=== PATIENT | female | born 1980 | race Hispanic/Latino ===

== ENCOUNTER 2022-01-25 06:36 | Day surgery (SDC) | payer BC ==
[2022-01-22 10:04] VITALS: BP 195/85
[2022-01-22 16:25] LABS: BASOPHILS % (AUTO) 0.3 % (0.0-5.0); EOSINOPHILS % (AUTO) 1.9 % (0.0-8.0); HEMATOCRIT 39.5 % (36-48); LYMPHOCYTES % (AUTO) 33.4 % (21.0-51.0); MEAN CORPUSCULAR HGB CONC 32.9 g/dL (32.0-36.0); MEAN CORPUSCULAR VOLUME 82.1 fL (79-99); MONOCYTES % (AUTO) 6.5 % (3.0-13.0); NEUTROPHILS % (AUTO) 57.6 % (40.0-77.0); PLATELET COUNT (AUTO) 447 K/uL (130-400); RED BLOOD CELL COUNT(AUTO) 4.81 MIL/uL (4.00-5.50); RED CELL DISTRIBUTION WIDTH 13.6 % (11.0-15.5); WHITE BLOOD COUNT (AUTO) 10.6 K/uL (4.8-10.8)
[2022-01-25] VITALS (18 sets, daily range): BP systolic 144–173; BP diastolic 79–97
[~2022-01-25] VITALS: Ht 165.1 cm; Wt 150.1 kg
[~2022-01-25 06:36] MED LIST: CEFAZOLIN SODIUM 1 GM VIAL IVP SCH; LACTATED RINGERS 1000ML 1,000 ML IV SCH; LISI20TA24 PO; METF-446 PO; SEMA1PEN3 SQ
[2022-01-25] MEDS ORDERED: 0.9%NACL 1000ML 1,000 ML IV ONE (06:44)
[2022-01-25] MEDS ORDERED: CEFAZOLIN SODIUM 1 GM VIAL ONE (06:44)
[2022-01-25] MEDS ORDERED: FAMOTIDINE 20MG VIAL IV ONE (07:29)
[2022-01-25] MEDS ORDERED: SUCCINYLCHOLINE CHLORIDE 20 MG/ML 10 ML VIAL ONE ×2 (07:31→07:33)
[2022-01-25] MEDS ORDERED: GLYCOPYRROLATE 1 MG/5 ML SYRINGE ONE (07:32)
[2022-01-25] MEDS ORDERED: FENTANYL CITRATE PF 50 MCG/1 ML 2ML VIAL ONE (07:32)
[2022-01-25] MEDS ORDERED: PROPOFOL 10 MG/ML 20ML VIAL IV ONE ×3 (07:32→08:09)
[2022-01-25] MEDS ORDERED: ROCURONIUM 10MG/1ML SYR 10 MG/ML ML ONE (07:32)
[2022-01-25] MEDS ORDERED: LIDOCAINE PF 100MG/5ML (2%) SYRINGE 5ML ONE ×2 (07:33→08:31)
[2022-01-25] MEDS ORDERED: ONDANSETRON 4MG INJ ONE (07:55)
[2022-01-25] MEDS ORDERED: NEOSTIGMINE 5MG/5ML SYR IV ONE (08:08)
[2022-01-25] MEDS ORDERED: LABETALOL 20MG VIAL IV ONE (08:13)
== END 2022-01-25 10:15 | disposition home or self-care (01) ==
LOC: DAH 06:36
PROVIDERS: ATTEND Obstetrics & Gynecology
DX: N92.0 Excessive and frequent menstruation with regular cycle (principal); N81.2 Incomplete uterovaginal prolapse; I10 Essential (primary) hypertension; K21.9 Gastro-esophageal reflux disease without esophagitis; E66.9 Obesity, unspecified; E11.9 Type 2 diabetes mellitus without complications; Z79.84 Long term (current) use of oral hypoglycemic drugs; Z98.890 Other specified postprocedural states; Z79.899 Other long term (current) drug therapy
CPT/HCPCS: 36415; 58300; 58558; 82948 ×2; 84703; 85025; 86850; 86900; 86901; 87635; A4215; A4221; A4222; A4223; A4351; A4355; A4606; A4663; A6260; C9803; J0330 ×2; J0690; J2001 ×2; J2405; J2704 ×3; J2710; J3010; J3490 ×3; J7030 ×2

== ENCOUNTER → 2022-06-24 | Outpatient (CLI) | payer BC ==
[~2022-06-24] MED LIST changes: -CEFAZOLIN SODIUM 1 GM VIAL IVP SCH; -LACTATED RINGERS 1000ML 1,000 ML IV SCH
== END | disposition home or self-care (01) ==
LOC: RAH 08:02
PROVIDERS: ATTEND Obstetrics & Gynecology
DX: N63.10 Unspecified lump in the right breast, unspecified quadrant (principal); Z12.31 Encounter for screening mammogram for malignant neoplasm of breast; Z12.39 Encounter for other screening for malignant neoplasm of breast
CPT/HCPCS: 76641

== ENCOUNTER 2023-06-18 07:09 | Day surgery (SDC) | payer BC ==
[2023-06-17 12:34] LABS: BASOPHILS # (AUTO) 0.02 K/uL (0.00-0.20); BASOPHILS % (AUTO) 0.2 % (0.0-5.0); EOSINOPHILS # (AUTO) 0.27 K/uL (0.00-0.70); EOSINOPHILS % (AUTO) 2.7 % (0.0-8.0); HEMATOCRIT 33.5 % (36-48); IMMATURE GRANULOCYTE ABSOLUTE 0.03 K/uL (0-1); LYMPHOCYTES % (AUTO) 30.8 % (21.0-51.0); MEAN CORPUSCULAR HEMOGLOBIN 22.1 pg (27.0-33.0); MEAN CORPUSCULAR HGB CONC 30.4 g/dL (32.0-36.0); MEAN CORPUSCULAR VOLUME 72.5 fL (79-99); MONOCYTES # (AUTO) 0.6 K/uL (0.1-1.0); MONOCYTES % (AUTO) 6.2 % (3.0-13.0); NEUTROPHILS # (AUTO) 5.9 K/uL (1.8-7.7); NEUTROPHILS % (AUTO) 59.8 % (40.0-77.0); PLATELET COUNT (AUTO) 464 K/uL (130-400); RED BLOOD CELL COUNT(AUTO) 4.62 MIL/uL (4.00-5.50); RED CELL DISTRIBUTION WIDTH 17.1 % (11.0-15.5); WHITE BLOOD COUNT (AUTO) 9.8 K/uL (4.8-10.8)
[2023-06-17 13:23] VITALS: BP 192/74; PULSE 86; RESP 17
[~2023-06-18] VITALS: Ht 165.1 cm; Wt 148.4 kg
[2023-06-18] VITALS (17 sets, daily range): BP systolic 146–182; BP diastolic 72–97; PULSE 80–94; RESP 13–20
[~2023-06-18 07:09] MED LIST changes: -LISI20TA24 PO; +LISI40TA9 PO; +METF-444 PO; -METF-446 PO; -SEMA1PEN3 SQ; +SEMA2PEN SQ
[2023-06-18] MEDS ORDERED: ESTROGENS,CONJUGATED 0.625 MG/GM 42.5 GM VAG CRM VG ONE (07:21)
[2023-06-18] MEDS ORDERED: LIDOCAINE 1%-EPI 1:100,000 20 ML VIAL IJ ONE (07:22)
[2023-06-18] MEDS ORDERED: 0.9%NACL 1000ML 1,000 ML IV ONE (07:39)
[2023-06-18] MEDS ORDERED: CEFAZOLIN SODIUM 2 GM VIAL ONE (07:47)
[2023-06-18] MEDS ORDERED: METRONIDAZOLE 500MG/100ML BAG 0 ML ONE (07:48)
[2023-06-18] MEDS ORDERED: CEFAZOLIN SODIUM 1 GM VIAL ONE (07:48)
[2023-06-18] MEDS ORDERED: HYDROMORPHONE 1 MG INJ ONE (07:58)
[2023-06-18] MEDS ORDERED: FAMOTIDINE 20MG VIAL IV ONE (07:58)
[2023-06-18] MEDS ORDERED: DEXAMETHASONE SOD PHOSPHATE 4 MG/ML 1ML VIAL ONE (07:59)
[2023-06-18] MEDS ORDERED: PHENAZOPYRIDINE HCL 200 MG TABLET ONE (08:00)
[2023-06-18] MEDS ORDERED: SCOPOLAMINE HYDROBROMIDE 1 EACH ADH..PATCH TD ONE (08:00)
[2023-06-18] MEDS ORDERED: BUPIVACAINE LIPOSOME/PF 266 MG/20 ML ML IJ ONE (08:00)
[2023-06-18] MEDS ORDERED: MIDAZOLAM HCL 1 MG/ML 2ML VIAL ONE (08:07)
[2023-06-18] MEDS ORDERED: LIDOCAINE PF 100MG/5ML (2%) SYRINGE 5ML ONE (08:07)
[2023-06-18] MEDS ORDERED: SUCCINYLCHOLINE 200MG/10ML SYR ONE (08:10)
[2023-06-18] MEDS ORDERED: FENTANYL CITRATE PF 50 MCG/1 ML 2ML VIAL ONE (08:10)
[2023-06-18] MEDS ORDERED: PROPOFOL 10 MG/ML 20ML VIAL IV ONE (08:10)
[2023-06-18] MEDS ORDERED: ROCURONIUM BROMIDE 10MG/1ML 5ML VL ONE (08:17)
[2023-06-18] MEDS ORDERED: BUPIVACAINE/PF 0.5% 10ML VIAL ONE (08:39)
[2023-06-18] MEDS ORDERED: BUPIVACAINE/PF 0.25% 30ML VIAL IJ ONE (08:39)
[2023-06-18] MEDS ORDERED: SUGAMMADEX SODIUM 200 MG/2 ML VIAL IV ONE (08:50)
[2023-06-18] MEDS ORDERED: ALBUTEROL INHALER 90MCG/INH IH ONE (09:03)
== END 2023-06-18 10:40 | disposition home or self-care (01) ==
LOC: DAH 07:09
PROVIDERS: ATTEND Obstetrics & Gynecology
DX: N92.0 Excessive and frequent menstruation with regular cycle (principal); I10 Essential (primary) hypertension; E11.9 Type 2 diabetes mellitus without complications; J45.909 Unspecified asthma, uncomplicated; K21.9 Gastro-esophageal reflux disease without esophagitis; Z53.8 Procedure and treatment not carried out for other reasons; Z79.899 Other long term (current) drug therapy; Z79.01 Long term (current) use of anticoagulants; Z79.84 Long term (current) use of oral hypoglycemic drugs; Z98.890 Other specified postprocedural states; Z82.49 Family history of ischemic heart disease and other diseases of the circulatory system; Z83.3 Family history of diabetes mellitus; Z82.0 Family history of epilepsy and other diseases of the nervous system; Z87.891 Personal history of nicotine dependence
CPT/HCPCS: 84703; 85025; 86850; 86900; 86901; 36415; 82948 ×2; A6260; J1100; J7120; A4215 ×2; J3490 ×2; J3010; J0330; J7030; J0665; J2001; J2250; J2704; G0168; A4649 ×3; A4930; C9290; J0690; J1170

== ENCOUNTER → 2023-11-14 | Outpatient (CLI) | payer BC | END | disposition home or self-care (01) | LOC: RAH 12:52 | PROVIDERS: ATTEND Obstetrics & Gynecology | DX: Z12.31 Encounter for screening mammogram for malignant neoplasm of breast (principal) | CPT/HCPCS: 77067 ==

== ENCOUNTER → 2024-11-15 | Outpatient (CLI) | payer BC ==
--- NOTE | 2024-11-15 11:59 | HMCIMG ---
MAMMO SCREENING BILATERAL HISTORY: Screening mammogram. COMPARISON: 11/14/2023 TECHNIQUE: Bilateral screening mammogram with CAD was performed with craniocaudal and mediolateral oblique projections. FINDINGS: The breasts are heterogeneous dense, which may obscure small masses. Nodular density is again seen in the upper outer quadrant of the right breast also seen on previous study. Ultrasound is recommended for complete evaluation. There is no other evidence of a dominant mass, or suspicious microcalcification. There is no evidence of nipple retraction or skin thickening. IMPRESSION: 1. Nodular density is again seen in the upper outer quadrant of the right breast also seen on previous study. Ultrasound is recommended for complete evaluation. Patient is felt hardening and palpable at this time. Patient was entered into a reminder system with a target due date for their next mammogram. BI-RADS: CATEGORY 0: INCOMPLETE. NEED ADDITIONAL IMAGING EVALUATION Diagnostic mammogram is recommended. Recommend monthly self breast exam as well as annual clinical examination. A negative x-ray should not delay biopsy if a dominant or clinically suspicious mass is present, since 8-10% of cancers are not identified by mammography. Dense breasts particularly, may obscure an underlying neoplasm. Some of these may be detected clinically and therefore, clinical examination is an essential part of breast evaluation.
== END | disposition home or self-care (01) ==
LOC: RAH 10:00
PROVIDERS: ATTEND Family Medicine
DX: Z12.31 Encounter for screening mammogram for malignant neoplasm of breast (principal); R92.333 Mammographic heterogeneous density, bilateral breasts
CPT/HCPCS: 77067

== ENCOUNTER → 2024-11-26 | Outpatient (CLI) | payer BC ==
--- NOTE | 2024-11-26 10:43 | HMCIMG ---
PROCEDURE: US BREAST BILATERAL, MAMMO DX UNILATERAL RIGHT HISTORY: Abnormal mammogram COMPARISON: 11/15/2024 TECHNIQUE: Right breast digital diagnostic mammogram with CAD was performed. No additional views were obtained. Right breast ultrasound study was performed. FINDINGS: There are scattered areas of fibroglandular density. Nodular densities are again seen at 9:30 o'clock of right breast with ultrasound findings most consistent with intramammary lymph nodes. There is no other evidence of a dominant mass, or suspicious microcalcification. There is no evidence of nipple retraction or skin thickening. There are bilateral breast cysts at 10:00 of right breast measuring 4 x 2 x 4 mm and 1:00 of left breast measuring 3 by 2 x 2 millimeter. There are right breast intramammary lymph nodes at 9:30 o'clock measuring 8 mm and 9 mm each. This corresponds to the mammographic findings. There are bilateral axillary lymph nodes with the largest on the right measuring 2.2 x 0.7 x 3.2 cm and largest on the left measuring 11 x 7.7 mm. IMPRESSION: 1. Stable mammogram. BI-RADS: CATEGORY 2: BENIGN FINDINGS Recommend monthly self breast exam as well as annual clinical examination. A negative x-ray should not delay biopsy if a dominant or clinically suspicious mass is present, since 8-10% of cancers are not identified by mammography. Dense breasts particularly, may obscure an underlying neoplasm. Some of these may be detected clinically and therefore, clinical examination is an essential part of breast evaluation.
== END | disposition home or self-care (01) ==
LOC: RAH 09:08
PROVIDERS: ATTEND Family Medicine
DX: N60.01 Solitary cyst of right breast (principal); N60.02 Solitary cyst of left breast; N63.11 Unspecified lump in the right breast, upper outer quadrant; R92.30 Dense breasts, unspecified
CPT/HCPCS: 77065